=== PATIENT | male | born 1950 | race American Indian/Alaskan Native ===

== ENCOUNTER 2016-07-27 18:04 | Emergency (ER) | payer MEDICARE ==
[2016-07-27 19:45] VITALS: BP 140/92
[2016-07-27] MEDS ORDERED: DECADRON IM ONE (20:29)
[2016-07-27] MEDS ORDERED: BICILLIN L-A IM ONE (20:30)
--- NOTE | 2016-07-27 20:36 | Emergency Department Report ---
- General Chief Complaint: Upper Respiratory Infection Stated Complaint: NECK SWOLLEN/HARD TO SWALLOW Time Seen by Provider: 07/27/16 20:27 Source: patient Mode of arrival: Ambulatory Limitations: No Limitations - History of Present Illness Initial Comments: 66 year old male presents to the Emergency Room with c/o sore throat, sinus congestion and dry cough for last few days. denies any fever, chest pain or SOB. MD Complaint: cough, sore throat, rhinorrhea, nasal congestion, sinus pain -: Gradual Severity: moderate Severity scale (0 -10): 3 Quality: dull, aching Consistency: constant Improves With: nothing Worsens With: nothing Associated Symptoms: nasal congestion, sore throat, cough. denies: fever, chills, myalgias, diaphoresis, headache, rhinorrhea, stiff neck, shortness of breath, nausea, vomiting - Related Data Previous Rx's Medication Instructions Recorded Last Taken Type Cetirizine HCl [ZyrTEC] 10 mg PO DAILY #20 capsule 07/27/16 Unknown Rx predniSONE [Deltasone] 20 mg PO QDAY #5 tab 07/27/16 Unknown Rx Allergies Allergy/AdvReac Type Severity Reaction Status Date / Time No Known Allergies Allergy Verified 07/27/16 19:41 ED Review of Systems ROS: Stated complaint: NECK SWOLLEN/HARD TO SWALLOW Other details as noted in HPI Comment: All other systems reviewed and negative Constitutional: denies: chills, fever Eyes: denies: eye pain, eye discharge, vision change ENT: as per HPI, throat pain. denies: ear pain Respiratory: cough. denies: shortness of breath, wheezing Cardiovascular: as per HPI. denies: chest pain, palpitations Endocrine: no symptoms reported, see HPI Gastrointestinal: denies: abdominal pain, nausea, diarrhea Genitourinary: denies: urgency, dysuria Musculoskeletal: denies: back pain, joint swelling, arthralgia Skin: denies: rash, lesions Neurological: denies: headache, weakness, paresthesias Psychiatric: denies: anxiety, depression Hematological/Lymphatic: denies: easy bleeding, easy bruising ED Past Medical Hx - Past Medical History Previous Medical History?: Yes Hx Hypertension: Yes Hx Psychiatric Treatment: Yes - Surgical History Past Surgical History?: Yes Additional Surgical History: BLADDER PROCEDURE - Social History Smoking Status: Current Every Day Smoker Substance Use Type: None - Medications Home Medications: Home Medications Medication Instructions Recorded Confirmed Last Taken Type Cetirizine HCl [ZyrTEC] 10 mg PO DAILY #20 capsule 07/27/16 Unknown Rx predniSONE [Deltasone] 20 mg PO QDAY #5 tab 07/27/16 Unknown Rx ED Physical Exam - General Limitations: No Limitations General appearance: alert, in no apparent distress - Head Head exam: Present: atraumatic, normocephalic, other (mild frontal sinus tenderness) - Eye Eye exam: Present: normal appearance, PERRL, EOMI - ENT ENT exam: Present: mucous membranes moist, TM's normal bilaterally, other ( bilatreal pharyngeal erythema) - Neck Neck exam: Present: normal inspection - Respiratory Respiratory exam: Present: normal lung sounds bilaterally. Absent: respiratory distress, wheezes - Cardiovascular Cardiovascular Exam: Present: regular rate, normal rhythm. Absent: systolic murmur, diastolic murmur, rubs, gallop - GI/Abdominal GI/Abdominal exam: Present: soft, normal bowel sounds - Rectal Rectal exam: Present: deferred - Extremities Exam Extremities exam: Present: normal inspection, full ROM - Back Exam Back exam: Present: normal inspection, full ROM - Neurological Exam Neurological exam: Present: alert, oriented X3, CN II-XII intact, motor sensory deficit - Psychiatric Psychiatric exam: Present: normal affect, normal mood - Skin Skin exam: Present: warm, dry, intact, normal color. Absent: rash ED Course Vital Signs 07/27/16 19:41 Temperature 98.5 F Pulse Rate 87 Respiratory 20 Rate Blood Pressure 140/92 O2 Sat by Pulse 99 Oximetry Critical Care Time: No Critical care attestation.: If time is entered above; I have spent that time in minutes in the direct care of this critically ill patient, excluding procedure time. ED Disposition Clinical Impression: Acute bacterial pharyngitis, Sinusitis chronic, frontal Acute bronchitis Qualifiers: Bronchitis organism: unspecified organism Qualified Code(s): J20.9 - Acute bronchitis, unspecified Disposition: DISCHARGED TO HOME OR SELFCARE Is pt being admited?: No Does the pt Need Aspirin: No Condition: Good Instructions: Acute Bronchitis (ED), Pharyngitis (ED), Sinusitis (ED) Prescriptions: Cetirizine HCl [ZyrTEC] 10 mg PO DAILY #20 capsule predniSONE [Deltasone] 20 mg PO QDAY #5 tab Forms: Work/School Release Form(ED)
== END 2016-07-27 20:59 | disposition home or self-care (01) ==
LOC: ED 18:04
DX: J02.8 Acute pharyngitis due to other specified organisms (principal); B96.89 Other specified bacterial agents as the cause of diseases classified elsewhere; J32.1 Chronic frontal sinusitis; J20.9 Acute bronchitis, unspecified; I10 Essential (primary) hypertension; F17.200 Nicotine dependence, unspecified, uncomplicated
CPT/HCPCS: 96372; 99282; J0561; J1100